=== PATIENT | female | born 1995 | race Caucasian/White ===

== ENCOUNTER 2017-12-03 14:11 | Emergency (ER) | payer SELFPAY ==
[~2017-12-03] VITALS: Ht 170.2 cm; Wt 76.6 kg
[2017-12-03 14:13] VITALS: BP 127/85
[2017-12-03] MEDS ORDERED: NAPROSYN500 MG PO (15:08)
[2017-12-03] MEDS ORDERED: FLEXERIL10 MG PO (15:08)
[2017-12-03] MEDS ORDERED: PERCOCET 5/31 TABLET PO (15:08)
== END 2017-12-03 16:55 | disposition home or self-care (01) ==
LOC: EME 14:11
DX: S39.012A Strain of muscle, fascia and tendon of lower back, initial encounter (principal); X50.1XXA Overexertion from prolonged static or awkward postures, initial encounter
CPT/HCPCS: 99281; 99283; J1885